=== PATIENT | male | born 1995 | race Caucasian/White ===

== ENCOUNTER 2021-12-03 00:58 | Emergency (ER) | payer OTHER ==
--- NOTE | 2021-12-03 05:21 | ED Physician Documentation ---
PD HPI MALE - Stated complaint Stated Complaint: MALE - Chief complaint Chief Complaint: General - History obtained from History obtained from: Patient - History of Present Illness Timing - onset: How many days ago (5-7) Timing - details: Gradual onset Associated symptoms: Genital sore / lesion PD HPI MALE CONTRIB FACTORS: Sexually active Recently seen: Not recently seen - Additional information Additional information: c/o penile lesions x 5-7 days, mild painful discomfort of these lesions. Denies h/o similar lesions. denies fever, denies penile discharge. Review of Systems Constitutional: denies: Fever GI: denies: Abdominal Pain : denies: Dysuria, Frequency, Discharge Skin: reports: Lesions (penile) PD PAST MEDICAL HISTORY - Past Medical History Past Medical History: No - Present Medications Home Medications: Ambulatory Orders Medication Instructions Recorded Confirmed Valacyclovir HCl [Valtrex] 1,000 mg PO BID #14 tablet 12/03/21 - Allergies Allergies/Adverse Reactions: Allergies Allergy/AdvReac Type Severity Reaction Status Date / Time No Known Drug Allergies Allergy Verified 12/03/21 01:21 PD ED PE NORMAL - Vitals Vital signs reviewed: Yes - General General: Alert and oriented X 3, No acute distress PD ED PE EXPANDED - Male Male : Circumcised, Skin lesions, Other (solitary ulcerated, tender lesion 2-3 mm diameter on dorsal aspect distal shaft, immediately adjacent to glans. There is a cluster of 10-15 2mm white/clear vesicles proximal aspect of penis (dorsal surface)). No: Discharge Results - Vitals Vitals: Vital Signs - 24 hr 12/03/21 05:24 Temperature 36.7 C Heart Rate 58 L Respiratory 18 Rate Blood Pressure 157/83 H O2 Saturation 100 Oxygen O2 Source Room air - Labs Labs: Laboratory Tests 12/03/21 06:30 Chlam trachomat DNA PCR NEGATIVE N.gonorrhoeae DNA (PCR) NEGATIVE T. 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 Valacyclovir dose in ED with rx for same submitted to his pharmacy ([facility]). blood testing undertaken for HSV 1/2 IGG and IGM, and a swab of the distal penile ulceration sent for HSV PCR. The distal lesion has a different appearance than the cluster of vesicles, with the vesicles appearing more c/w HSV but without any ulcerated/open lesions from which to obtain culture (PCR). These might represent two different processes with the distal lesion having a broader differential that would include focal balanitis, ingrown hair Departure - Departure Disposition: 01 Home, Self Care Clinical Impression: Genital sore Condition: Good Instructions: ED Chlamydia GC Poss Culture Pend Prescriptions: Valacyclovir HCl [Valtrex] 1,000 mg PO BID #14 tablet Comments: As we discussed, the rash is consistent with herpes simplex virus but tests are pending to determine if this is the cause. You have been started on an anti- viral medication which often speeds the healing of herpes; if your tests result negative, taking the medication should not cause any problems (some people have side effects from this medication, but they are unusual and tend to be mild when present). You have also been tested for gonorrhea and chlamydia although, as we discussed, these are unlikely given the appearance of the rash. If either of these are positive (gonorrhea and/or chlamydia), you should receive a call about the results and an antibiotic can then be prescribed. Discharge Date/Time: 12/03/21 07:03
[2021-12-03 05:25] VITALS: BP 157/83
[2021-12-03] MEDS ORDERED: valACYclovir 500 MG TABLET PO STA (06:16)
[2021-12-03 21:54] LABS: CHLAMYDIA TRACHOMATIS DNA NEGATIVE (NEGATIVE); NEISSERIA GONORRHOEAE DNA NEGATIVE (NEGATIVE)
== END 2021-12-03 07:03 | disposition home or self-care (01) ==
LOC: ED 00:58
DX: N48.89 Other specified disorders of penis (principal)
CPT/HCPCS: 36415; 81599; 86695; 86696; 87491; 87529; 87591; 99283; A9270; 87661

== ENCOUNTER 2023-04-08 09:51 | Emergency (ER) | payer OTHER ==
--- NOTE | 2023-04-08 10:37 | ED Physician Documentation ---
PD HPI CHEST PAIN - Stated complaint Stated Complaint: CP - Chief complaint Chief Complaint: Cardiac - History obtained from History obtained from: Patient - Additional information Additional information: The patient comes to the emergency department with chief complaint of episodes of chest pain over the last week. He states he gets a somewhat sharp and pressure sensation in a very focused spot on his left medial chest, just at the inferior edge of his breast. States it hurts when he takes a deep breath, so he does not breathe very deeply. He states the pain lasted the longest when he first got this a week ago. 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 However, the pain persisted for a bit after he got out of the plane and finally went away on its own. He states he felt completely normal in between and was able to workout without difficulty. He states that he had no further episodes again for 3 days and then had another 1. He states this was more short-lived, but it was at night. He did notice that his right arm felt a little numb at that time but he was also in bed and states that he sleeps in weird positions and often gets numb extremities. The patient states the final episode was today and that it was very brief, on the order of a couple of minutes. The patient denies any air hunger, nausea, diaphoresis, or lightheadedness with the episodes. He states he is otherwise very healthy. He used to have asthma as a kid, which was mainly induced by exercise. However, he does not have asthma anymore. He is not a smoker and has no diabetes. His blood pressure generally is good, though on his last flight physical, they noted it was a little bit elevated. However, since this is not the norm for the patient, he did not have any interventions at that time. The patient states he is not currently having any pain. No other complaints at this time. PD PAST MEDICAL HISTORY - Past Medical History Cardiovascular: None Respiratory: None Neuro: None Endocrine/Autoimmune: None GI: None : None HEENT: None Psych: None Musculoskeletal: None Derm: None - Past Surgical History Past Surgical History: No - Present Medications Home Medications: Ambulatory Orders Medication Instructions Recorded Confirmed No Known Home Medications 04/08/23 04/08/23 - Allergies Allergies/Adverse Reactions: Allergies Allergy/AdvReac Type Severity Reaction Status Date / Time No Known Drug Allergies Allergy Verified 04/08/23 10:02 - Social History Does the pt smoke?: No Smoking Status: Never smoker Does the pt drink ETOH?: No Does the pt have substance abuse?: No - Immunizations Immunizations are current?: Yes PD ED PE NORMAL - Vitals Vital signs reviewed: Yes - General General: Alert and oriented X 3, No acute distress, Well developed/nourished - HEENT HEENT: Atraumatic, PERRL, Moist mucous membranes - Neck Neck: Supple, no meningeal sign - Cardiac Cardiac: RRR, No murmur - Respiratory Respiratory: No respiratory distress, Clear bilaterally - Abdomen Abdomen: Soft, Non tender, Non distended - Derm Derm: Normal color, Warm and dry, No rash - Extremities Extremities: No deformity, No edema, No calf tenderness / cord - Neuro Neuro: Alert and oriented X 3 - Psych Psych: Normal mood, Normal affect PD ED PE EXPANDED - Free text exam Free text exam: No chest wall tenderness. Results - Vitals Vitals: Vital Signs - 24 hr 04/08/23 10:00 Temperature 36.8 C Heart Rate 63 Respiratory 16 Rate Blood Pressure 158/86 H O2 Saturation 98 Oxygen O2 Source Room air - EKG (time done) 0953 EKG releavant findings:: EKG personally interpreted by author of this note. Relevant findings are: Rate: Rate (enter#) (63) Rhythm: NSR Randolph: Normal Intervals: Normal [place] QRS: Normal Ischemia: Normal ST segments Compare to prior EKG: Old EKG unavailable Computer interpretation: Agree with computer PD Medical Decision Making - ED course Complexity details: reviewed results, re-evaluated patient, considered differential, d/w patient ED course: The patient was very well-appearing and was very low risk overall for coronary artery disease. His blood pressure was somewhat high in the emergency department at 150s over 80s, and I did discuss with him that it is going to be important for him to follow this closely to make sure he has not developed hypertension. The patient's EKG was unremarkable. I sent him for chest x-ray which was also negative. I discussed with the patient that his symptoms sound most consistent with a musculoskeletal source, given the incredibly focused and small area where he is feeling the pain and also, the worsening with deep breaths. We have discussed the need for follow-up, should the symptoms get worse. We discussed the usual indications for return. Departure - Departure Disposition: 01 Home, Self Care Clinical Impression: Chest wall pain Condition: Stable Instructions: ED Chest Pain NonCardiac Comments: Your EKG and chest x-ray look great. Your extremely low risk for coronary artery disease, the underlying condition which causes a heart attack. Furthermore, you have no findings consistent with blood clot. Your symptoms are most consistent with a musculoskeletal source of the pain. If you continue to have increasing frequency of the pain after a few weeks, you should follow-up with your primary doctor. For now, you make take Tylenol and ibuprofen to help with the symptoms, as well as use ice, heat, massage, or stretching to help relieve symptoms. If you develop severe chest pain or shortness of breath, you should return to the emergency department.
[2023-04-08 11:08] VITALS: BP 129/80
--- NOTE | 2023-04-08 11:25 | XRAY Report ---
PROCEDURE: Chest 1 View X-Ray INDICATIONS: chest pain TECHNIQUE: One view of the chest was acquired. COMPARISON: None. FINDINGS: Surgical changes and devices: None. Lungs and pleura: No pleural effusions or pneumothorax. Lungs are clear. Mediastinum: Mediastinal contours appear normal. Heart size is normal. Bones and chest wall: No suspicious bony lesions. Overlying soft tissues appear unremarkable. IMPRESSION: No acute cardiopulmonary process. Reviewed by: Darcy Carrillo MD on 04/08/2023 11:23 AM PDT Approved by: Darcy Carrillo MD on 04/08/2023 11:23 AM PDT Station ID: [id number]
== END 2023-04-08 11:04 | disposition home or self-care (01) ==
LOC: ED 09:51
DX: R07.89 Other chest pain (principal)
CPT/HCPCS: 93005; 99283; 99284

== ENCOUNTER 2024-01-07 12:01 | Emergency (ER) | payer OTHER ==
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
[2024-01-07] MEDS: methocarbamoL 500 MG TABLET PO STA (13:35)
[2024-01-07] MEDS: IBUPROFEN 600 MG TABLET PO STA (13:35)
[2024-01-07] MEDS: ACETAMINOPHEN 500 MG TABLET PO STA (13:35)
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
[2024-01-07 15:36] VITALS: BP 129/54; O2SAT 100
== END 2024-01-07 15:28 | disposition home or self-care (01) ==
LOC: ED 12:01
DX: S39.012A Strain of muscle, fascia and tendon of lower back, initial encounter (principal); R51.9 Headache, unspecified; V43.53XA Car driver injured in collision with pick-up truck in traffic accident, initial encounter; Y92.410 Unspecified street and highway as the place of occurrence of the external cause
CPT/HCPCS: 70450; 72131; 99284; A9270